=== PATIENT | female | born 1980 | race Caucasian/White ===

== ENCOUNTER 2024-03-06 17:23 | Emergency (ER) | payer BC ==
[~2024-03-06] VITALS: Ht 152.4 cm; Wt 81.8 kg
[2024-03-06 22:00] VITALS: BP 128/90; PULSE 62; RESP 14; TEMP 98.3; O2SAT 100
== END 2024-03-06 22:01 | disposition home or self-care (01) ==
LOC: ER 17:25
DX: M79.605 Pain in left leg (principal); Z88.8 Allergy status to other drugs, medicaments and biological substances
CPT/HCPCS: 93971; 99284